=== PATIENT | male | born 1945 | race Caucasian/White ===

== ENCOUNTER 2020-07-08 06:52 | Outpatient (NON) | payer MEDICARE, OTHER, SELFPAY ==
[2020-07-08 22:23] LABS: SARS-CoV-2 RNA PCR Negative
== END 2020-07-08 06:53 ==
PROVIDERS: PCP Internal Medicine; Visit Provider Internal Medicine
DX: Z03.818 Encounter for observation for suspected exposure to other biological agents ruled out (principal)
CPT/HCPCS: 87635; C9803; U0003

== ENCOUNTER 2021-04-07 10:29 | Outpatient (CLI) | payer MEDICARE, OTHER, SELFPAY ==
--- NOTE | ~2021-04-07 | MR_ITS ---
EXAMINATION: MR knee RT wo con DATE: 04/07/2021 12:12 INDICATION: Anterior and medial right knee pain. TECHNIQUE: Magnetic resonance imaging (MRI) of the right knee was performed without intravenous contr ast. Sequences included axial PD-weighted FS FSE, coronal PD-weighted FSE and PD-weighted FS FSE, sag ittal PD-weighted FSE, and sagittal T2-weighted FS FSE. COMPARISON: None. FINDINGS: Medial compartment: There is a complex tear involving body and posterior horn of medial meniscus. There is shallow partia l-thickness cartilage loss of tibial condyle, worst at the central articular surface where there is m ild subchondral edema-like marrow signal intensity. There is a subchondral insufficiency fracture of medial femoral condyle with low signal fracture lines and edema-like bone marrow signal intensity. Th ere is shallow partial-thickness cartilage loss of femoral condyle involving the medial, central, and lateral articular surface. There are tiny marginal osteophytes. Lateral compartment: The lateral meniscus is normal. There is cartilage surface irregularity of tibial condyle and femoral condyle. There are tiny marginal osteophytes. Patellofemoral compartment: There is full-thickness cartilage loss of patellar lateral facet and median ridge and deep partial th ickness cartilage loss of patellar medial facet with mild subchondral edema-like marrow signal intens ity. There is full-thickness cartilage loss of medial, central, and lateral trochlea with cortical ir regularity and mild subchondral edema-like marrow signal intensity. Osteophytes are noted. Ligaments and tendons: The anterior and posterior cruciate ligaments are normal. Medial collateral ligament is intact. There are changes of prior sprain of fibular collateral ligament characterized by increased signal intensi ty proximally. The patellar tendon is normal. Fluid: There is a moderate-sized knee joint effusion. There is mild prepatellar and superficial infrapatella r bursitis. IMPRESSION: 1. Severe chondrosis of patellofemoral compartment and mild chondrosis of medial and lateral compartm ents. 2. Subchondral insufficiency fracture of medial femoral condyle. 3. Complex tear of medial meniscus. 4. Moderate-sized knee joint effusion. Reviewed, dictated and finalized at location A. IMPRESSION: 1. Severe chondrosis of patellofemoral compartment and mild chondrosis of media l and lateral compartments. 2. Subchondral insufficiency fracture of medial femoral condyle. 3. Complex tear of medial meniscus. 4. Moderate-sized knee joint effusion.
== END 2021-04-07 10:30 | disposition home or self-care (01) ==
PROVIDERS: PCP Internal Medicine; Visit Provider Student in an Organized Health Care Education/Training Program
DX: M25.561 Pain in right knee (principal); G89.29 Other chronic pain; M22.2X1 Patellofemoral disorders, right knee; M84.451A Pathological fracture, right femur, initial encounter for fracture; S83.231A Complex tear of medial meniscus, current injury, right knee, initial encounter; M25.461 Effusion, right knee
CPT/HCPCS: 73721